=== PATIENT | female | born 1955 | race Asian ===

== ENCOUNTER 2016-08-21 21:58 | Emergency (ER) | payer OTHER ==
[~2016-08-21] VITALS: Ht 157.5 cm; Wt 57.0 kg
[2016-08-21] MEDS ORDERED: ASPI-556 PO (22:05)
[2016-08-21] MEDS ORDERED: EMPA25TA PO (22:05)
[2016-08-21] MEDS ORDERED: OS500 PO (22:05)
[2016-08-21] MEDS ORDERED: BENA10TA3 PO (22:05)
[2016-08-21] MEDS ORDERED: LOVA20 PO (22:05)
[2016-08-21] MEDS ORDERED: METF850T2 PO (22:05)
[2016-08-21 22:11] LABS: GLUCOSE,POINT OF CARE 176 MG/DL (70-110)
[2016-08-21] MEDS ORDERED: DiphenhydrAMINE HCL 25 MG CAPSULE PO ONE (22:30)
[2016-08-21] MEDS ORDERED: DEXAMETHASONE SOD PHOS 4 MG/ML 5 ML VIAL IM ONE (22:30)
[2016-08-21 22:32] VITALS: BP 148/79
== END 2016-08-21 22:45 | disposition home or self-care (01) ==
LOC: EMS 22:01
DX: L23.9 Allergic contact dermatitis, unspecified cause (principal); E11.8 Type 2 diabetes mellitus with unspecified complications; E78.00 Pure hypercholesterolemia, unspecified; I10 Essential (primary) hypertension; Z79.82 Long term (current) use of aspirin
CPT/HCPCS: 82962; 96372; 99283; J1100